=== PATIENT | male | born 1970 | race Caucasian/White ===

== ENCOUNTER 2021-05-12 22:12 | Inpatient (IN) | payer OTHER ==
[2021-05-12] MEDS ORDERED: DECADRON 10MG INJ. ONE (23:18)
[2021-05-12] MEDS ORDERED: Lactated Ringers 1,000 ML IV ONE (23:19)
[2021-05-12] MEDS ORDERED: MOTRIN 400 MG ONE (23:21)
[2021-05-12] MEDS ORDERED: Zofran 4 MG/2 ML VIAL ONE (23:29)
[2021-05-13] MEDS ORDERED: REMDESIVIR 200 MG in Sodium Chloride 0.9% 250 ML 250 ML IV ONE (02:00)
[2021-05-13] MEDS ORDERED: REMDESIVIR IV ONE (02:06)
[2021-05-13] MEDS ORDERED: Sodium Chloride 0.9% 250 ML 250 ML IV ONE (02:06)
[2021-05-13] MEDS ORDERED: Sodium Chloride 0.9% 10 ML FLUSH Syringe IV PRN (05:30)
[2021-05-13] MEDS: VENTOLIN COMMON CANISTER IH SCH ×4 (07:15→17:55)
[2021-05-13 07:28] LABS: INR 1.06 (0.8-3.0); PROTIME 12.5 SECONDS (9.4-12.5)
[2021-05-13 07:29] LABS: BLOOD UREA NITROGEN 15 mg/dL (9-20); Creatinine 1 0.76 mg/dL (0.66-1.25); EST GLOMERULAR FILTRATION RATE > 60.0 ML/MIN; Glucose 130 mg/dL (74-106); SODIUM 137 mmol/L (137-145)
[2021-05-13 07:30] LABS: ALBUMIN 4.3 g/dL (3.5-5.0); ALKALINE PHOSPHATASE 56 U/L (38-126); CHLORIDE 99 mmol/L (98-107); Calcium 8.7 mg/dL (8.4-10.2); Carbon Dioxide 25 mmol/L (22-30); SGOT/AST 108 U/L (17-59); SGPT/ALT 46 U/L (0-50); TROPONIN < 0.012 ng/mL (0.000-0.034)
[2021-05-13 07:31] LABS: Hematocrit 45.1 % (42-50); Hemoglobin 14.5 gm/dl (12.5-18.0); Mean Cell Volume 86.1 fl (78-100); Mean Corpuscular Hemoglobin 27.7 pg (26-32); Mean Corpuscular Hgb Concent. 32.2 g/dl (32-36); Mean Platelet Volume 10.2 fl (7.5-11.0); Platelet Count 159 K/mm3 (150-450); Red Blood Count 5.24 M/mm3 (4.1-5.6); Red Cell Distribution Width 13.7 % (11.5-14.0); White Blood Count 2.8 K/mm3 (4.0-10.5)
[2021-05-13 08:02] LABS: A-aADO2 518; ABG HEMOGLOBIN 13.3; ABG POTASSIUM 3.8 (3.5-5.1); ARTERIAL BLD GAS O2 SATURATION 95.1 % (95-100); ARTERIAL BLOOD GAS BASE EXCESS 1.5 (-2.0-2.0); ARTERIAL BLOOD GAS FIO2 90 %; ARTERIAL BLOOD GAS PCO2 43 mmHg (35-45); ARTERIAL BLOOD GAS PO2 70 mmHg (75-100); HCO3- 26.6 (22-28); HGB O2 SAT 93.3 g/dF (94-100)
[2021-05-13 08:03] LABS: ABG SITE LEFT RADIAL; ALLEN TEST OK? Yes
[2021-05-13] MEDS: PHENERGAN WITH CODEINE SYRUP PO PRN ×4 (09:46→22:21)
[2021-05-13] MEDS: ENOXAPARIN SODIUM SQ SCH (09:46)
[2021-05-13] MEDS: Ativan 1 MG PO PRN ×3 (10:25→22:21)
[2021-05-13] MEDS: DECADRON 10MG INJ. IV SCH (10:26)
--- NOTE | 2021-05-13 10:36 | XRAY ---
Indication: Short of breath. Positive Covid 19. Comparison: None Portable chest underinflated with diffuse bilateral patchy airspace disease without consolidation/large effusion. Heart not enlarged. Bony thorax intact.
[2021-05-13] MEDS: Sodium Chloride 0.9% 10 ML FLUSH Syringe IV SCH (14:16)
[2021-05-13 16:27] LABS: A-aADO2 599; ABG HEMOGLOBIN 13.6; ABG POTASSIUM 4.4 (3.5-5.1); ARTERIAL BLD GAS O2 SATURATION 92.5 % (95-100); ARTERIAL BLOOD GAS FIO2 100 %; ARTERIAL BLOOD GAS PCO2 44 mmHg (35-45); ARTERIAL BLOOD GAS PO2 59 mmHg (75-100); ARTERIAL BLOOD GAS pH 7.44 (7.35-7.45); HCO3- 29.9 (22-28); HGB O2 SAT 90.8 g/dF (94-100); Methhemoglobin 0.9 % (1.4-1.5)
[2021-05-13 16:28] LABS: ABG SITE LEFT BRACHIAL; ARTERIAL BLOOD GAS VENT MODE AVAPS; ARTERIAL BLOOD GAS VENT RATE 16 /MIN
[2021-05-13 16:29] LABS: ARTERIAL BLD GAS TIDAL VOLUME 600 cc; ARTERIAL BLOOD GAS PEEP 12 cmH2O
[2021-05-13] MEDS ORDERED: Lasix 20 MG/2 ML IV ONE (18:00)
[2021-05-13] MEDS ORDERED: VENTOLIN COMMON CANISTER IH PRN (18:18)
[2021-05-13] MEDS: REMDESIVIR 100 MG in Sodium Chloride 0.9% 100 ML BAG 100 ML IV SCH (22:21)
[2021-05-14] MEDS: DUONEB 0.5-3 MG/3 ml Neb IH SCH ×6 (03:57→23:15)
[2021-05-14 05:29] LABS: A-aADO2 478; ABG HEMOGLOBIN 13.7; ARTERIAL BLD GAS O2 SATURATION 99.9 % (95-100); ARTERIAL BLD GAS TIDAL VOLUME 600 cc; ARTERIAL BLOOD GAS FIO2 100 %; ARTERIAL BLOOD GAS PCO2 40 mmHg (35-45); ARTERIAL BLOOD GAS PO2 185 mmHg (75-100); ARTERIAL BLOOD GAS pH 7.47 (7.35-7.45); CARBOXYHEMOGLOBIN 5.7 % THgb (0.0-6.9); HCO3- 29.1 (22-28); HGB O2 SAT 93.6 g/dF (94-100); Methhemoglobin 0.6 % (1.4-1.5)
[2021-05-14 05:30] LABS: ABG SITE RIGHT BRACHIAL; ARTERIAL BLOOD GAS VENT MODE AVAPS; ARTERIAL BLOOD GAS VENT RATE 16 /MIN
[2021-05-14 05:39] LABS: Hematocrit 42.6 % (42-50); Hemoglobin 13.7 gm/dl (12.5-18.0); Mean Cell Volume 86.6 fl (78-100); Mean Corpuscular Hemoglobin 27.8 pg (26-32); Mean Corpuscular Hgb Concent. 32.2 g/dl (32-36); Mean Platelet Volume 9.8 fl (7.5-11.0); Platelet Count 212 K/mm3 (150-450); Red Blood Count 4.92 M/mm3 (4.1-5.6); Red Cell Distribution Width 13.5 % (11.5-14.0)
[2021-05-14 05:44] LABS: ALBUMIN 3.8 g/dL (3.5-5.0); ALKALINE PHOSPHATASE 58 U/L (38-126); ANION GAP 13.7 MEQ/L (5-15); BLOOD UREA NITROGEN 18 mg/dL (9-20); CHLORIDE 101 mmol/L (98-107); Calcium 8.8 mg/dL (8.4-10.2); Carbon Dioxide 29 mmol/L (22-30); Creatinine 1 0.63 mg/dL (0.66-1.25); EST GLOMERULAR FILTRATION RATE > 60.0 ML/MIN; Glucose 163 mg/dL (74-106); Potassium 4.2 mmol/L (3.5-5.1); SGOT/AST 64 U/L (17-59); SGPT/ALT 41 U/L (0-50); SODIUM 139 mmol/L (137-145); Total Protein 7.2 g/dL (6.3-8.2)
[2021-05-14 06:21] LABS: INR 1.06 (0.8-3.0); PROTIME 12.5 SECONDS (9.4-12.5)
--- NOTE | 2021-05-14 07:35 | XRAY ---
Indication: Short of breath. Positive Covid 19. Comparison: May 12, 2021. Portable chest remains underinflated. Again diffuse bilateral patchy airspace disease overall minimally improved again without consolidation/large effusion. Heart not enlarged. No new cardiopulmonary abnormalities.
[2021-05-14] MEDS: Sodium Chloride 0.9% 10 ML FLUSH Syringe IV SCH ×3 (09:10→22:03)
[2021-05-14] MEDS: DECADRON 10MG INJ. IV SCH (09:51)
[2021-05-14] MEDS: ENOXAPARIN SODIUM SQ SCH (09:51)
[2021-05-14] MEDS: Ativan 1 MG PO PRN ×3 (12:20→21:30)
[2021-05-14] MEDS: Protonix 40MG Tablet PO SCH (13:58)
[2021-05-14] MEDS: PHENERGAN WITH CODEINE SYRUP PO PRN ×2 (17:19→21:30)
[2021-05-14] MEDS ORDERED: Lasix 20 MG/2 ML IV ONE (18:00)
[2021-05-14] MEDS: REMDESIVIR 100 MG in Sodium Chloride 0.9% 100 ML BAG 100 ML IV SCH (21:29)
[2021-05-15] MEDS: DUONEB 0.5-3 MG/3 ml Neb IH SCH ×6 (02:57→22:10)
[2021-05-15 03:03] LABS: A-aADO2 529; ABG HEMOGLOBIN 14.3; ARTERIAL BLD GAS O2 SATURATION 98.8 % (95-100); ARTERIAL BLD GAS TIDAL VOLUME 600 cc; ARTERIAL BLOOD GAS BASE EXCESS 6.6 (-2.0-2.0); ARTERIAL BLOOD GAS FIO2 100 %; ARTERIAL BLOOD GAS PCO2 40 mmHg (35-45); ARTERIAL BLOOD GAS PO2 134 mmHg (75-100); ARTERIAL BLOOD GAS pH 7.49 (7.35-7.45); HCO3- 30.5 (22-28); Methhemoglobin 0.8 % (1.4-1.5)
[2021-05-15 03:04] LABS: ABG SITE RIGHT BRACHIAL; ARTERIAL BLOOD GAS VENT MODE AVAPS; ARTERIAL BLOOD GAS VENT RATE 16 /MIN
[2021-05-15] MEDS: Ativan 1 MG PO PRN ×6 (03:18→23:42)
[2021-05-15 06:08] LABS: Hematocrit 42.2 % (42-50); Hemoglobin 13.4 gm/dl (12.5-18.0); Mean Cell Volume 87.4 fl (78-100); Mean Corpuscular Hemoglobin 27.7 pg (26-32); Mean Corpuscular Hgb Concent. 31.8 g/dl (32-36); Mean Platelet Volume 9.3 fl (7.5-11.0); Platelet Count 257 K/mm3 (150-450); Red Blood Count 4.83 M/mm3 (4.1-5.6); Red Cell Distribution Width 13.5 % (11.5-14.0); White Blood Count 6.3 K/mm3 (4.0-10.5)
[2021-05-15 06:19] LABS: INR 1.08 (0.8-3.0); PROTIME 12.7 SECONDS (9.4-12.5)
[2021-05-15 06:27] LABS: ALBUMIN 3.5 g/dL (3.5-5.0); ALKALINE PHOSPHATASE 73 U/L (38-126); ANION GAP 11.4 MEQ/L (5-15); BLOOD UREA NITROGEN 19 mg/dL (9-20); CHLORIDE 99 mmol/L (98-107); Calcium 8.4 mg/dL (8.4-10.2); Carbon Dioxide 30 mmol/L (22-30); Creatinine 1 0.62 mg/dL (0.66-1.25); EST GLOMERULAR FILTRATION RATE > 60.0 ML/MIN; Glucose 167 mg/dL (74-106); Potassium 4.1 mmol/L (3.5-5.1); SGOT/AST 70 U/L (17-59); SGPT/ALT 50 U/L (0-50); SODIUM 137 mmol/L (137-145); Total Protein 6.6 g/dL (6.3-8.2)
--- NOTE | 2021-05-15 07:29 | XRAY ---
Indication: Follow-up COVID 19. Comparison: One day earlier. Portable chest unchanged again underinflated with diffuse bilateral airspace disease again without consolidation//large effusion. Heart not enlarged. No new cardiopulmonary abnormalities.
[2021-05-15] MEDS: PHENERGAN WITH CODEINE SYRUP PO PRN ×4 (07:46→20:05)
[2021-05-15] MEDS: Sodium Chloride 0.9% 10 ML FLUSH Syringe IV SCH ×3 (08:43→22:25)
[2021-05-15 10:18] LABS: ATYPICAL LYMPHS 1 %; BAND 3 % (0.0-2.0); Lymphocytes 22 % (24-44); Neutrophils 74 % (36.-66.); Platelet Estimate NORMAL (NORMAL); Total Cells Counted 100; Toxic Granulation 1+
[2021-05-15] MEDS: ENOXAPARIN SODIUM SQ SCH (10:40)
[2021-05-15] MEDS: DECADRON 10MG INJ. IV SCH (10:40)
[2021-05-15] MEDS: Protonix 40MG Tablet PO SCH (10:41)
[2021-05-15] MEDS ORDERED: SODIUM CHLORIDE 0.9% IV ONE (12:00)
[2021-05-15] MEDS ORDERED: ACTEMRA IV ONE (12:00)
[2021-05-15] MEDS: Sodium Chloride 0.9% 1000 ML 1,000 ML IV SCH (12:59)
[2021-05-15] MEDS: REMDESIVIR 100 MG in Sodium Chloride 0.9% 100 ML BAG 100 ML IV SCH (22:24)
[2021-05-16 03:00] LABS: A-aADO2 577; ABG HEMOGLOBIN 13.8; ARTERIAL BLD GAS O2 SATURATION 96.8 % (95-100); ARTERIAL BLOOD GAS BASE EXCESS 6.6 (-2.0-2.0); ARTERIAL BLOOD GAS FIO2 100 %; ARTERIAL BLOOD GAS PCO2 47 mmHg (35-45); ARTERIAL BLOOD GAS PO2 77 mmHg (75-100); ARTERIAL BLOOD GAS pH 7.44 (7.35-7.45); HCO3- 31.9 (22-28); HGB O2 SAT 95.2 g/dF (94-100); Methhemoglobin 0.7 % (1.4-1.5)
[2021-05-16 03:01] LABS: ABG SITE RIGHT RADIAL; ALLEN TEST OK? YES; ARTERIAL BLD GAS TIDAL VOLUME 550 cc; ARTERIAL BLOOD GAS PEEP 8 cmH2O; ARTERIAL BLOOD GAS VENT MODE AVAPS; ARTERIAL BLOOD GAS VENT RATE 16 /MIN
[2021-05-16] MEDS: DUONEB 0.5-3 MG/3 ml Neb IH SCH ×6 (03:05→23:29)
[2021-05-16] MEDS: Sodium Chloride 0.9% 1000 ML 1,000 ML IV SCH ×2 (03:52→21:56)
[2021-05-16] MEDS: PHENERGAN WITH CODEINE SYRUP PO PRN ×4 (03:53→21:57)
[2021-05-16] MEDS: Ativan 1 MG PO PRN ×4 (03:55→21:57)
[2021-05-16 05:33] LABS: Hematocrit 42.7 % (42-50); Hemoglobin 13.5 gm/dl (12.5-18.0); Mean Cell Volume 87.5 fl (78-100); Mean Corpuscular Hemoglobin 27.7 pg (26-32); Mean Corpuscular Hgb Concent. 31.6 g/dl (32-36); Mean Platelet Volume 9.3 fl (7.5-11.0); Platelet Count 233 K/mm3 (150-450); Red Blood Count 4.88 M/mm3 (4.1-5.6); Red Cell Distribution Width 13.4 % (11.5-14.0); White Blood Count 5.5 K/mm3 (4.0-10.5)
[2021-05-16 05:40] LABS: ALBUMIN 3.3 g/dL (3.5-5.0); ALKALINE PHOSPHATASE 72 U/L (38-126); ANION GAP 11.4 MEQ/L (5-15); BLOOD UREA NITROGEN 19 mg/dL (9-20); CHLORIDE 101 mmol/L (98-107); Calcium 8.3 mg/dL (8.4-10.2); Carbon Dioxide 31 mmol/L (22-30); Creatinine 1 0.75 mg/dL (0.66-1.25); EST GLOMERULAR FILTRATION RATE > 60.0 ML/MIN; Glucose 156 mg/dL (74-106); SGOT/AST 62 U/L (17-59); SGPT/ALT 53 U/L (0-50); SODIUM 139 mmol/L (137-145); Total Protein 6.4 g/dL (6.3-8.2)
[2021-05-16] MEDS ORDERED: Lasix 20 MG/2 ML IV ONE (06:11)
[2021-05-16] MEDS: Sodium Chloride 0.9% 10 ML FLUSH Syringe IV SCH ×3 (06:17→21:56)
[2021-05-16 07:18] LABS: ANISOCYTOSIS 1+; ATYPICAL LYMPHS 1 %; BAND 3 % (0.0-2.0); Lymphocytes 18 % (24-44); Monocyte 4 % (0.0-12.0); Neutrophils 74 % (36.-66.); Platelet Estimate NORMAL (NORMAL); Total Cells Counted 100
--- NOTE | 2021-05-16 09:12 | XRAY ---
Indication: Follow-up Covid 19. Comparison: One day earlier. Portable chest remains slightly underinflated and grossly unchanged again demonstrating diffuse bilateral hazy airspace disease without consolidation/large effusion. Heart not enlarged. No new cardiopulmonary abnormalities.
[2021-05-16] MEDS: DECADRON 10MG INJ. IV SCH (10:37)
[2021-05-16] MEDS: Protonix 40MG Tablet PO SCH (10:37)
[2021-05-16] MEDS: ENOXAPARIN SODIUM SQ SCH (10:40)
--- NOTE | 2021-05-16 12:08 | HP ---
CHIEF COMPLAINT: Shortness of breath, cough, fever and diarrhea. HISTORY OF PRESENT ILLNESS: The patient is a 51-year-old white male who came in at about 2300 hours last night to the emergency room with the above symptoms, hypoxia, sweats, positive COVID test. He states he has been symptomatic for three days and getting worse. He has not had the COVID vaccine. His O2 saturations stabilized in upper 80's. His blood gas in the emergency room showed pH 7.4, CO2 44 and O2 was 92. EKG was sinus rhythm. At around 2330 hours, he desaturated and required 100% high flow at 30 liters/minute to get his O2 finally up to 94%. He deteriorated again this afternoon and after giving him some Lasix 20 mg he seems to think that helped and his O2 is 94% on high flow oxygen at 40 so he has probably had this since his test was positive from 05/04/2021 and has presently been nine days he has been quarantined from his family. He is not for sure where he got it. MEDICATIONS: Protonix 40 q.d. ALLERGIES: PENICILLIN. PAST MEDICAL HISTORY: No chronic illnesses. PHYSICAL EXAMINATION: The patient is alert, orientated, short of breath, sweaty and in some respiratory distress this morning. VITAL SIGNS: Temperature 99F, pulse 100, respirations 24. HEENT: Pupils equal and reactive to light. Hearing and vision appears to be normal. NECK: Supple without adenopathy. CHEST: Wheezing bilateral anterior and posterior. CVS: No murmurs or gallops. ABDOMEN: Soft. No tenderness or organomegaly. EXTREMITIES: Muscular. No edema. No cyanosis. LAB DATA AND TESTS: Chest x-ray showed bilateral pneumonia at the bases typical for COVID. His COVID test was positive. His D-dimer was like 900. Electrolytes were normal. IMPRESSION: The patient has COVID pneumonia moderately severe. PLAN: The patient will be treated with Decadron, Remdesivir, Protonix and be anticoagulated with Lovenox. PROGNOSIS: Fair.
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
[2021-05-16] MEDS: REMDESIVIR 100 MG in Sodium Chloride 0.9% 100 ML BAG 100 ML IV SCH (21:56)
[2021-05-17 02:41] LABS: A-aADO2 529; ABG HEMOGLOBIN 14.5; ARTERIAL BLD GAS O2 SATURATION 98.5 % (95-100); ARTERIAL BLOOD GAS BASE EXCESS 4.8 (-2.0-2.0); ARTERIAL BLOOD GAS FIO2 100 %; ARTERIAL BLOOD GAS PCO2 48 mmHg (35-45); ARTERIAL BLOOD GAS PO2 124 mmHg (75-100); ARTERIAL BLOOD GAS VENT MODE AVAPS; ARTERIAL BLOOD GAS pH 7.41 (7.35-7.45); CARBOXYHEMOGLOBIN 0.3 % THgb (0.0-6.9); HCO3- 30.4 (22-28); HGB O2 SAT 97.4 g/dF (94-100); Methhemoglobin 0.8 % (1.4-1.5)
[2021-05-17 02:42] LABS: ABG SITE LEFT RADIAL; ALLEN TEST OK? YES; ARTERIAL BLD GAS TIDAL VOLUME 550 cc; ARTERIAL BLOOD GAS PEEP 12 cmH2O; ARTERIAL BLOOD GAS VENT RATE 16 /MIN
[2021-05-17] MEDS: DUONEB 0.5-3 MG/3 ml Neb IH SCH ×6 (02:47→23:40)
[2021-05-17 06:02] LABS: Hematocrit 44.8 % (42-50); Hemoglobin 14.2 gm/dl (12.5-18.0); Mean Cell Volume 86.3 fl (78-100); Mean Corpuscular Hemoglobin 27.4 pg (26-32); Mean Corpuscular Hgb Concent. 31.7 g/dl (32-36); Mean Platelet Volume 9.2 fl (7.5-11.0); Platelet Count 203 K/mm3 (150-450); Red Blood Count 5.19 M/mm3 (4.1-5.6); Red Cell Distribution Width 13.2 % (11.5-14.0); White Blood Count 7.7 K/mm3 (4.0-10.5)
[2021-05-17] MEDS: Sodium Chloride 0.9% 10 ML FLUSH Syringe IV SCH ×3 (06:06→20:29)
[2021-05-17] MEDS: Ativan 1 MG PO PRN (06:26)
[2021-05-17 06:31] LABS: INR 1.16 (0.8-3.0); PROTIME 13.7 SECONDS (9.4-12.5)
[2021-05-17 06:33] LABS: ALBUMIN 3.3 g/dL (3.5-5.0); ALKALINE PHOSPHATASE 76 U/L (38-126); ANION GAP 12.4 MEQ/L (5-15); BLOOD UREA NITROGEN 21 mg/dL (9-20); CHLORIDE 101 mmol/L (98-107); Calcium 8.3 mg/dL (8.4-10.2); Carbon Dioxide 30 mmol/L (22-30); EST GLOMERULAR FILTRATION RATE > 60.0 ML/MIN; Glucose 127 mg/dL (74-106); Potassium 3.9 mmol/L (3.5-5.1); SGOT/AST 77 U/L (17-59); SGPT/ALT 95 U/L (0-50); SODIUM 140 mmol/L (137-145); Total Protein 6.3 g/dL (6.3-8.2)
--- NOTE | 2021-05-17 09:06 | XRAY ---
Indication: Covid 19 pneumonia. Comparison: One day earlier. Portable chest unchanged again underinflated with grossly stable diffuse bilateral hazy airspace disease. Heart not enlarged. No new cardiopulmonary abnormalities.
[2021-05-17] MEDS: DECADRON 10MG INJ. IV SCH (09:37)
[2021-05-17] MEDS: Protonix 40MG Tablet PO SCH (09:37)
[2021-05-17] MEDS: ENOXAPARIN SODIUM SQ SCH (09:37)
[2021-05-17 09:50] LABS: BAND 3 % (0.0-2.0); Lymphocytes 6 % (24-44); Monocyte 6 % (0.0-12.0); Neutrophils 85 % (36.-66.); Platelet Estimate NORMAL (NORMAL); Total Cells Counted 100
[2021-05-17] MEDS: Sodium Chloride 0.9% 1000 ML 1,000 ML IV SCH ×2 (12:59→17:16)
[2021-05-18] MEDS: DUONEB 0.5-3 MG/3 ml Neb IH SCH ×6 (03:10→22:30)
[2021-05-18] MEDS: Ativan 1 MG PO PRN ×6 (03:22→23:58)
[2021-05-18 06:03] LABS: Absolute Neutrophil Ct (ANC) 8.63 (1.4-6.9); Basophil (Absolute #) 0 (0-0.4); Eosinophil % 1.9 % (0.00-5.0); Hematocrit 46.1 % (42-50); Hemoglobin 14.8 gm/dl (12.5-18.0); Lymphocyte (Absolute #) 1.14 (1.0-4.6); Lymphocytes % 10.8 % (24.0-44.0); Mean Cell Volume 85.2 fl (78-100); Mean Corpuscular Hemoglobin 27.4 pg (26-32); Mean Corpuscular Hgb Concent. 32.1 g/dl (32-36); Mean Platelet Volume 9.3 fl (7.5-11.0); Monocyte (Absolute #) 0.55 (0.0-1.3); Monocytes % 5.2 % (0.0-12.0); Neutrophil % 82.1 % (36.0-66.0); Platelet Count 172 K/mm3 (150-450); Red Blood Count 5.41 M/mm3 (4.1-5.6); Red Cell Distribution Width 13.2 % (11.5-14.0); White Blood Count 10.5 K/mm3 (4.0-10.5)
[2021-05-18 06:08] LABS: ALBUMIN 3.2 g/dL (3.5-5.0); ALKALINE PHOSPHATASE 100 U/L (38-126); ANION GAP 11.7 MEQ/L (5-15); BLOOD UREA NITROGEN 19 mg/dL (9-20); CHLORIDE 101 mmol/L (98-107); Calcium 8.2 mg/dL (8.4-10.2); Carbon Dioxide 28 mmol/L (22-30); Creatinine 1 0.74 mg/dL (0.66-1.25); EST GLOMERULAR FILTRATION RATE > 60.0 ML/MIN; Glucose 116 mg/dL (74-106); SGOT/AST 77 U/L (17-59); SGPT/ALT 123 U/L (0-50); SODIUM 137 mmol/L (137-145); Total Protein 6.2 g/dL (6.3-8.2)
[2021-05-18] MEDS: Sodium Chloride 0.9% 10 ML FLUSH Syringe IV SCH ×3 (06:36→20:35)
[2021-05-18] MEDS: OLUMIANT PO SCH ×3 (06:52→11:13)
[2021-05-18] MEDS: PHENERGAN WITH CODEINE SYRUP PO PRN ×5 (07:47→23:57)
--- NOTE | 2021-05-18 09:09 | XRAY ---
Indication: Covid 19 pneumonia. Comparison: May 17, 2021. Portable chest slightly better inflated with grossly stable diffuse bilateral hazy airspace disease. Heart not enlarged. No new cardiopulmonary abnormalities.
[2021-05-18] MEDS: ENOXAPARIN SODIUM SQ SCH (09:17)
[2021-05-18] MEDS: Sodium Chloride 0.9% 1000 ML 1,000 ML IV SCH ×2 (09:17→23:59)
[2021-05-18] MEDS: DECADRON 10MG INJ. IV SCH (09:17)
[2021-05-18] MEDS: Protonix 40MG Tablet PO SCH (09:18)
[2021-05-18] MEDS: TYLENOL 325 MG PO PRN ×2 (09:54→15:44)
[2021-05-18] MEDS ORDERED: OLUMIANT PO SCH (10:00)
[2021-05-18] MEDS ORDERED: ENOXAPARIN SODIUM SQ ONE (11:20)
[2021-05-19] MEDS: DUONEB 0.5-3 MG/3 ml Neb IH SCH ×6 (03:14→22:51)
[2021-05-19 05:43] LABS: Absolute Neutrophil Ct (ANC) 8.66 (1.4-6.9); BASOPHIL % 0.1 % (0.0-0.4); Basophil (Absolute #) 0.01 (0-0.4); Eosinophil % 2.3 % (0.00-5.0); Eosinophil (Absolute #) 0.24 (0-0.5); Hematocrit 47.1 % (42-50); Hemoglobin 15.1 gm/dl (12.5-18.0); Lymphocyte (Absolute #) 1.06 (1.0-4.6); Mean Cell Volume 85.2 fl (78-100); Mean Corpuscular Hemoglobin 27.3 pg (26-32); Mean Corpuscular Hgb Concent. 32.1 g/dl (32-36); Mean Platelet Volume 9.7 fl (7.5-11.0); Monocyte (Absolute #) 0.58 (0.0-1.3); Monocytes % 5.5 % (0.0-12.0); Neutrophil % 82.1 % (36.0-66.0); Platelet Count 151 K/mm3 (150-450); Red Blood Count 5.53 M/mm3 (4.1-5.6); Red Cell Distribution Width 13.4 % (11.5-14.0); White Blood Count 10.6 K/mm3 (4.0-10.5)
[2021-05-19 06:08] LABS: ALBUMIN 3.3 g/dL (3.5-5.0); ALKALINE PHOSPHATASE 132 U/L (38-126); ANION GAP 10.6 MEQ/L (5-15); BLOOD UREA NITROGEN 17 mg/dL (9-20); CHLORIDE 100 mmol/L (98-107); Calcium 8.2 mg/dL (8.4-10.2); Carbon Dioxide 29 mmol/L (22-30); Creatinine 1 0.83 mg/dL (0.66-1.25); EST GLOMERULAR FILTRATION RATE > 60.0 ML/MIN; Glucose 117 mg/dL (74-106); MAGNESIUM 2.4 mg/dL (1.6-2.3); Potassium 4.1 mmol/L (3.5-5.1); SGOT/AST 58 U/L (17-59); SGPT/ALT 94 U/L (0-50); SODIUM 136 mmol/L (137-145); Total Protein 6.1 g/dL (6.3-8.2)
--- NOTE | 2021-05-19 08:32 | XRAY ---
Indication: Pneumonia. Comparison: One day earlier. Portable chest continues to remain unchanged again demonstrating diffuse bilateral hazy airspace disease without consolidation/large effusion. Heart not enlarged. No new cardiopulmonary abnormalities.
[2021-05-19] MEDS: Sodium Chloride 0.9% 10 ML FLUSH Syringe IV SCH ×3 (09:30→19:31)
[2021-05-19] MEDS: OLUMIANT PO SCH (09:31)
[2021-05-19] MEDS: Sodium Chloride 0.9% 1000 ML 1,000 ML IV SCH ×2 (09:31→23:00)
[2021-05-19] MEDS: ENOXAPARIN SODIUM SQ SCH (09:31)
[2021-05-19] MEDS: Protonix 40MG Tablet PO SCH (09:31)
[2021-05-19] MEDS: DECADRON 10MG INJ. IV SCH (09:32)
--- NOTE | 2021-05-19 10:16 | PROG NOTE ---
This report was amended on 05/19/2021 PULMONARY FOLLOW-UP: DATE: 05/18/2021 EVENTS NOTED: Patient remains noninvasive ventilation dependent still with 100% Oxygen requirements. Appears tired with speech difficult to understand with BIPAP mask in place. Appears mildly tachypneic at rest. Vital signs noted. HEENT: Normocephalic. CVS: First and second heart sounds with normal regular rhythm. RESPIRATORY: Shows diminished breath sounds. Crackles are heard. ABDOMEN: Soft, no edema is noted. Labs reviewed. WBC 10.5, sodium 137, BUN 19, [place] [address]. Chest x-ray reviewed. ASSESSMENT: 1. THIS IS A 51 Y/O MALE ADMITTED WITH ACUTE SEVERE HYPOXIC RESPIRATORY FAILURE. 2. COVID-19 POSITIVE. 3. VIRAL PNEUMONIA. RECOMMENDATIONS: 1. Continue noninvasive ventilation. Patient appears to have clinically declined since last week and is likely going to require intubation/mechanical ventilation. 2. He was treated Remdesivir followed by [facility]. Received a call from clinical pharmacist inquiring about role of Baricitinib. I am personally not aware of any clinical benefit with triple combination therapy at this time. The study is available from November of 2020 or about starting combination of Baricitinib with Remdesivir therapy. He is on anticoagulation. Continue other supportive care. PROGNOSIS: Prognosis appears guarded at the best with no significant clinical improvement noted so far. Discussed with nursing staff. Will be available as needed.
[2021-05-19] MEDS: PHENERGAN WITH CODEINE SYRUP PO PRN ×2 (10:29→20:06)
[2021-05-19] MEDS: Ativan 1 MG PO PRN ×2 (12:02→20:05)
--- NOTE | 2021-05-19 12:32 | PROG NOTE ---
PULMONARY FOLLOW-UP: DATE: 05/19/2021 Events noted. Patient remains BIPAP dependent on 100% O2 with AVAPS mode. He is sitting in a chair with improvement in saturations while awake making deep breathing efforts. Vital signs noted. HEENT: Normocephalic. Oral exam limited. NECK: Supple. CVS: First and second heart sounds normal, regular rhythm. RESPIRATORY: Shows diminished breath sounds. ABDOMEN: Soft. No edema is noted. Bilateral basilar crackles are heard. Labs reviewed. ASSESSMENT: This is a 51 y/o male admitted with: 1. ACUTE SEVERE HYPOXIC RESPIRATORY FAILURE. 2. COVID-19 PNEUMONIA WITH VIRAL PNEUMONIA. 3. MILD ANXIETY. RECOMMENDATIONS: Continue present treatment. Continue noninvasive ventilation. Patient still requires 100% O2 on AVAPS mode. He is continued on oral Baricitinib Day 2. Will monitor for any improvement. If no significant improvement is noted in the next 48 hours, I would recommend patient be transferred to tertiary care center for possible transplant evaluation, although availability of bed and transportation from here to [place] does remain challenging to say the least. Will be available as needed.
[2021-05-20] MEDS: DUONEB 0.5-3 MG/3 ml Neb IH SCH ×5 (02:59→22:46)
[2021-05-20] MEDS: Sodium Chloride 0.9% 10 ML FLUSH Syringe IV SCH ×3 (04:08→21:03)
[2021-05-20 05:53] LABS: Hematocrit 44.3 % (42-50); Hemoglobin 14.4 gm/dl (12.5-18.0); Mean Cell Volume 85.4 fl (78-100); Mean Corpuscular Hemoglobin 27.7 pg (26-32); Mean Corpuscular Hgb Concent. 32.5 g/dl (32-36); Mean Platelet Volume 9.9 fl (7.5-11.0); Platelet Count 129 K/mm3 (150-450); Red Blood Count 5.19 M/mm3 (4.1-5.6); Red Cell Distribution Width 13.3 % (11.5-14.0); White Blood Count 11.2 K/mm3 (4.0-10.5)
[2021-05-20 06:08] LABS: ALBUMIN 3.1 g/dL (3.5-5.0); ALKALINE PHOSPHATASE 167 U/L (38-126); ANION GAP 8.8 MEQ/L (5-15); BLOOD UREA NITROGEN 18 mg/dL (9-20); CHLORIDE 100 mmol/L (98-107); Calcium 8.1 mg/dL (8.4-10.2); Carbon Dioxide 30 mmol/L (22-30); Creatinine 1 0.87 mg/dL (0.66-1.25); EST GLOMERULAR FILTRATION RATE > 60.0 ML/MIN; Glucose 111 mg/dL (74-106); Potassium 4.1 mmol/L (3.5-5.1); SGOT/AST 75 U/L (17-59); SGPT/ALT 86 U/L (0-50); SODIUM 135 mmol/L (137-145); Total Protein 5.9 g/dL (6.3-8.2)
[2021-05-20] MEDS: Ativan 1 MG PO PRN ×3 (07:40→20:08)
[2021-05-20] MEDS: OLUMIANT PO SCH (09:39)
[2021-05-20] MEDS: Protonix 40MG Tablet PO SCH (09:39)
[2021-05-20] MEDS: ENOXAPARIN SODIUM SQ SCH (09:39)
[2021-05-20] MEDS: DECADRON 10MG INJ. IV SCH (09:39)
[2021-05-20] MEDS: PHENERGAN WITH CODEINE SYRUP PO PRN ×2 (10:16→20:09)
[2021-05-20] MEDS: Sodium Chloride 0.9% 1000 ML 1,000 ML IV SCH (12:04)
[2021-05-21] MEDS: Ativan 1 MG PO PRN ×2 (02:26→07:17)
[2021-05-21] MEDS: PHENERGAN WITH CODEINE SYRUP PO PRN ×2 (02:31→07:18)
[2021-05-21] MEDS: DUONEB 0.5-3 MG/3 ml Neb IH SCH ×2 (02:47→07:15)
[2021-05-21] MEDS: Sodium Chloride 0.9% 1000 ML 1,000 ML IV SCH ×2 (02:58→07:17)
[2021-05-21] MEDS: Sodium Chloride 0.9% 10 ML FLUSH Syringe IV SCH (05:56)
[2021-05-21 08:43] VITALS: BP 126/82; O2SAT 87
[2021-05-21] MEDS ORDERED: Lasix 20 MG/2 ML IV ONE (08:45)
[2021-05-21] MEDS: DECADRON 10MG INJ. IV SCH (09:26)
[2021-05-21] MEDS: Ativan 2 MG/1 ML VIAL IV ONE ×2 (09:26→09:28)
[2021-05-21] MEDS: Protonix 40MG Tablet PO SCH (09:26)
[2021-05-21] MEDS: OLUMIANT PO SCH ×2 (09:26→15:33)
[2021-05-21] MEDS: ENOXAPARIN SODIUM SQ SCH (09:28)
[2021-05-21] MEDS ORDERED: Ativan 2 MG/1 ML VIAL IV ONE (09:56)
[2021-05-21] MEDS ORDERED: VALIUM 10 MG/2 ML SYRINGE ONE (10:17)
[2021-05-21] MEDS ORDERED: VALIUM 10 MG/2 ML SYRINGE IM ONE (10:18)
[2021-05-21] MEDS ORDERED: VERSED 5 MG/5 ML IV ONE (10:27)
[2021-05-21] MEDS ORDERED: SODIUM BICARBONATE 50 MEQ/50 ML ABBOJECT IV ONE (10:43)
[2021-05-21] MEDS ORDERED: XYLOCAINE 100 MG/5 ML ABBOJECT IV ONE (10:43)
[2021-05-21] MEDS ORDERED: Versed 50 MG/ 10 Ml MDV*** 50 MG in Sodium Chloride 0.9% 250 ML 240 ML IV PRN (10:45)
[2021-05-21] MEDS ORDERED: Nimbex 200MG/20 Ml MDV (HIGH RISK MED)** 200 MG in Dextrose 5%/Water IV Soln. 250 ML 18... IV SCH (10:45)
[2021-05-21] MEDS ORDERED: Sodium Chloride 0.9% 500 ML 500 ML IV ONE (10:52)
[2021-05-21] MEDS ORDERED: LEVOPHED 4 MG/4 ML 4,000 MCG in Dextrose 5%/Water IV Soln. 500 ML 500 ML IV SCH (11:00)
[2021-05-21] MEDS ORDERED: EPINEPHRINE ABBOJECT 1 MG IV ONE (11:06)
[2021-05-21 11:49] LABS: A-aADO2 615; ABG HEMOGLOBIN 15.8; ABG POTASSIUM 3.8 (3.5-5.1); ARTERIAL BLD GAS O2 SATURATION 80.1 % (95-100); ARTERIAL BLD GAS TIDAL VOLUME 550 cc; ARTERIAL BLOOD GAS BASE EXCESS 3.2 (-2.0-2.0); ARTERIAL BLOOD GAS FIO2 100 %; ARTERIAL BLOOD GAS PCO2 42 mmHg (35-45); ARTERIAL BLOOD GAS PO2 46 mmHg (75-100); ARTERIAL BLOOD GAS pH 7.43 (7.35-7.45); CARBOXYHEMOGLOBIN 1.3 % THgb (0.0-6.9); HCO3- 27.9 (22-28); HGB O2 SAT 78.6 g/dF (94-100); Methhemoglobin 0.6 % (1.4-1.5)
[2021-05-21 11:50] LABS: ABG SITE LEFT RADIAL; ARTERIAL BLOOD GAS VENT MODE AVAPS; ARTERIAL BLOOD GAS VENT RATE 16 /MIN
[2021-05-21] MEDS ORDERED: VALIUM 10 MG/2 ML SYRINGE IV ONE (13:19)
[2021-05-21 13:25] VITALS: PULSE 164
[2021-05-21] MEDS ORDERED: Lubrifresh P.M. 3.5 gm Ointment OP SCH (22:00)
== END 2021-05-21 11:07 | disposition expired | DRG 177 ==
LOC: ED 22:12 → OBSVTOIN 05-13 01:38 → MED SURG 05-13 01:38
PROVIDERS: ADMIT Family Medicine; ATTEND Family Medicine
DX: U07.1 COVID-19 (principal); J12.82 Pneumonia due to coronavirus disease 2019; J96.01 Acute respiratory failure with hypoxia; R05 Cough; R19.7 Diarrhea, unspecified; F41.9 Anxiety disorder, unspecified; Z79.899 Other long term (current) drug therapy
CPT/HCPCS: 31500; 36415; 36600; 71045; 80053; 82375; 82803; 83605; 83735; 84484; 85025; 85027; 85379; 85610; 87040; 92950; 94002; 94003; 94640; 94762; 96374; 96375; 99285; 99291; J0171; J1100; J1650; J1940; J2001; J2060; J2250; J2405; J3262; J3360; A9270-GY